=== PATIENT | male | born 1995 | race Caucasian/White ===

== ENCOUNTER → 2017-12-23 04:14 | Emergency (ER) | payer OTHER ==
[~2017-12-23 04:14] MED LIST: Amoxicillin/Clavulanate TAB* 500 MG PO ONE
[2017-12-23 06:05] VITALS: BP 121/67
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
== END | disposition home or self-care (01) ==
LOC: ED 04:14
DX: S61.251A Open bite of left index finger without damage to nail, initial encounter (principal); Y04.1XXA Assault by human bite, initial encounter; Y92.9 Unspecified place or not applicable
CPT/HCPCS: 99282; A9270-GY